=== PATIENT | female | born 1990 | race Caucasian/White ===

== ENCOUNTER 2016-06-03 13:12 | Outpatient (CLI) | payer BC ==
[~2016-06-03] VITALS: Ht 162.6 cm; Wt 63.4 kg
[~2016-06-03 13:12] MED LIST: FOLI0.4T2 PO; NAPR220C2 PO; ONDA4TAB14 PO; PREN1TAB31 PO
[2016-06-03 13:36] VITALS: BP 101/57; PULSE 101; RESP 18; Ht 162.6 cm; Wt 63.4 kg
--- NOTE | 2016-06-03 15:02 | RADRPT ---
PROCEDURE: US evaluation of placenta. CLINICAL INDICATION: Positive test. Vaginal bleeding. TECHNIQUE: Multiple sonographic images of the gravid uterus were obtained utilizing terrazas-scale iza ging. Sagittal and transverse images were obtained. The images were reviewed on a PACS workstation . The placenta was evaluated. COMPARISON: Cervical length ultrasound dated 03/22/2015. FINDINGS: There is a single live intrauterine . heart rate is 144 beats per minute. Position is cephalic and placenta is anterior grade 1. There is no placenta previa or abruption. IMPRESSION: 1. Placenta is anterior grade 1 with no abruption or previa. RPTAT: QQ .Tommie Gaona MD, MD Date Time Electronically viewed and signed by .Tommie Gaona MD, on 06/03/2016 15:02 .R/
[2016-06-03 15:42] LABS: ADD UMIC NO; URINE BILIRUBIN (Dip) NEGATIVE (NEGATIVE); URINE BLOOD (Dip) NEGATIVE (NEGATIVE); URINE COLOR LT. YELLOW (YELLOW); URINE GLUCOSE (Dip) NEGATIVE (NEGATIVE); URINE KETONES (Dip) NEGATIVE (NEGATIVE); URINE LEUKOCYTE ESTERASE (Dip) NEGATIVE (NEGATIVE); URINE NITRITE (Dip) NEGATIVE (NEGATIVE); URINE TOTAL PROTEIN (Dip) NEGATIVE (NEGATIVE); URINE UROBILINOGEN (Dip) 0.2 E.U./dL (0.1-1.0)
--- NOTE | 2016-06-03 15:53 | TRIAGE ---
OB Triage Datetime Report Generated by CPN: 06/03/2016 15:53 Datetime: 06/03/2016 15:00 Stage of : OB Triage Maternal Assessment Level of Consciousness: Fully Conscious Labor Evaluation Frequency: IRRITIBILITY NOTED Monitor Mode: External Duration (sec)2399: 20-30 Quality: Mild Resting Tone [place]: Relaxed Monitor Mode: External US (Annotations: ORDERS FOR LIMITED MONITORING) Pain Assessment Pain Scale: 0 Pain Goal: 3 Vaginal Exam Membrane Status: Intact Vaginal Bleeding: None Datetime: 06/03/2016 14:00 Stage of : OB Triage Maternal Assessment Level of Consciousness: Fully Conscious Labor Evaluation Frequency: NONE Monitor Mode: External Resting Tone [place]: Relaxed Heart Rate FHR Baseline Rate: 150 Monitor Mode: External US Variability: Moderate 6-25 bpm Accelerations: AGA Decelerations: AGA Pain Assessment Pain Scale: 0 Pain Goal: 3 Vaginal Exam Membrane Status: Intact Vaginal Bleeding: None Datetime: 06/03/2016 13:29 Assessment Type: Triage Maternal Assessment Level of Consciousness: Fully Conscious DTR's/Clonus: DTRs 2+; No Clonus Headache: Denies Blurred Vision: No Respiratory Effort: Unlabored; Regular Rhythm; Equal Expansion Breath Sounds, Left: Clear and Equal Breath Sounds, Right: Clear and Equal Nausea/Vomiting: Denies RUQ Epigastric Pain: Denies Lower Extremities Edema: None Degree: None Upper Extremities Edema: None Degree: None Facial Edema: None Fall Risk Assessment History of Falling: (0) No Secondary Diagnosis: (0) No Ambulatory Aid: (0) Bedrest/Nurse Assist IV Therapy: (0) No Gait: (0) Normal/Bedrest/Immobile Mental Status: (0) Oriented to Own Ability Fall Score: 0 Fall Risk Score Definition: No Risk: No action required Datetime: 06/03/2016 13:28 EGA: 23.2 Datetime: 06/03/2016 13:27 Time of Arrival: 06/03/2016 13:07 Arrived By: Ambulatory Arrived From: Home Chief Complaint: PT HERE C/O SPOTTING X 1 OCCURENCE AND ABD. PAIN Movement: Present Contractions: Denies/Absent Rupture of Membranes: Denies Vaginal Bleeding: None Vaginal Discharge: Denies Recent Sexual Intercouse: Denies Abdominal Trauma: Not Applicable Patient Complaints: None Provider Notified: JENNIFER Initial Plan: EFM, UA, U/S PLACENTA
--- NOTE | 2016-06-03 16:14 | CONS ---
Date/Time of Note Date/Time of Note DATE: 06/03/16 TIME: 16:07 Consultation Date/Type/Reason Admit Date/Time June 03, 2016 OB triage consult This patient is a 25 years old 2 para 1 living 1 with EDC of 09/28/2016 which makes her 23 weeks and 2 days She came about 3 hours ago to OB triage area complaining of abdominal pain and vaginal spotting and slight bleeding. On examination she is a well-developed well-nourished lady midterm her vital signs are all normal . blood pressure 99/57 pulse 801 temperature 98.7 oxygen saturation 95 her weight 63.4 kg. On examination her abdomen it is soft I do not feel any contractions heart tone and activity is normal. However to complete our evaluation I ordered a urinalysis and the result of which was negative no protein no glucose no blood nitrate was negative leukocyte esterase was negative On ultrasound which was performed today the report was that there is a single live intrauterine heart rate 144 bpm position cephalic with placenta anterior and grade 1 with no evidence of placenta previa with all these positive findings patient was discharged home to be followed in her pre- clinic in case of any further bleeding contractions or pain she can return to the triage area again Laboratory Tests Test 06/03/16 13:15 Urine Bilirubin NEGATIVE Urine Clarity CLEAR Urine Color LT. YELLOW Urine Glucose NEGATIVE% Urine Hemoglobin NEGATIVE Urine Ketones NEGATIVE Urine Leukocyte Esterase NEGATIVE Urine Nitrite NEGATIVE Urine Specific [place] 1.015 Urine Total Protein NEGATIVE Urine Urobilinogen 0.2 E.U./dL Urine pH 7.0 Initial Consult Date 24 HR Interval Summary Constitutional: No chills, No diaphoresis, No disoriented, No febrile, No improved, No no complaints, No other, No poor po, No requiring IVF, No requiring O2 Detailed Summary Eyes: No discharge, No no complaints, No other, No pain, No redness, No visual change ENT: No bleeding, No congestion, No discharge, No dysphagia, No no complaints, No other, No pain, No sore throat Respiratory: No cough, No no complaints, No other, No pain, No pleuritic pain, No shortness of breath, No sputum, No wheezing Cardiovascular: No chest pain, No edema, No lightheadedness, No no complaints, No orthopenea, No other, No palpitations, No paroxysmal nocturnal dyspnea Gastrointestinal: blood (As I mentioned there was a slight pink discharge but no real vaginal bleeding), No constipation, No decreased appetite, No diarrhea, No flatus, No nausea, No no complaints, No other, No pain, No passing stool, No vomiting Genitourinary: No bleeding, No discharge, No dysuria, No flank pain, No hematuria, No no complaints, No other Musculoskeletal: No back pain, No bone/joint pain, No neck pain, No no complaints, No other, No restricted range of motion, No swelling Skin: No bruising, No erythema, No laceration, No no complaints, No other, No pruritis, No rash, No skin lesions Neurologic: No confusion, No dizziness, No focal-weakness, No headache, No no complaints, No other, No seizure, No syncope Endocrine: No dry skin, No no complaints, No other, No polydypsia, No polyuria , No temp intolerance Exam/Review of Systems Vital Signs Vitals Vital Signs Date Time Temp Pulse Resp B/P Pulse Ox O2 Delivery O2 Flow Rate FiO2 06/03/16 13:36 98.7 101 18 101/57 95 Room Air Results Results 24 hrs Laboratory Tests Test 06/03/16 13:15 Urine Bilirubin NEGATIVE Urine Clarity CLEAR Urine Color LT. YELLOW Urine Glucose NEGATIVE Urine Hemoglobin NEGATIVE Urine Ketones NEGATIVE Urine Leukocyte Esterase NEGATIVE Urine Nitrite NEGATIVE Urine Specific [place] 1.015 Urine Total Protein NEGATIVE Urine Urobilinogen 0.2 E.U./dL Urine pH 7.0 LINDA DAMON MD Jun 03, 2016 16:14
== END 2016-06-03 16:10 | disposition home or self-care (01) ==
LOC: OBT 13:12 → L-D 13:16 → OBT 16:10
PROVIDERS: ATTEND Obstetrics & Gynecology
DX: O60.02 Preterm labor without delivery, second trimester (principal); Z3A.23 23 weeks gestation of pregnancy
CPT/HCPCS: 76815; 81003; Z7500; G0463

== ENCOUNTER 2016-08-11 13:24 | Outpatient (CLI) | payer BC ==
[~2016-08-11] VITALS: Ht 160 cm; Wt 65.0 kg
[~2016-08-11 13:24] MED LIST changes: -FOLI0.4T2 PO; -NAPR220C2 PO; -ONDA4TAB14 PO
[2016-08-11] MEDS ORDERED: PREN-93 PO (14:14)
[2016-08-11 14:15] VITALS: Ht 160 cm; Wt 65.0 kg
[2016-08-11 14:16] VITALS: BP 95/75; PULSE 19; RESP 19
--- NOTE | 2016-08-11 15:08 | TRIAGE ---
OB Triage Datetime Report Generated by CPN: 08/11/2016 15:08 Datetime: 08/11/2016 14:56 Stage of : OB Triage Maternal Assessment Level of Consciousness: Fully Conscious DTR's/Clonus: DTRs 1+ Headache: Denies Breath Sounds, Left: Clear and Equal Breath Sounds, Right: Clear and Equal RUQ Epigastric Pain: Denies Labor Evaluation Frequency: NONE Monitor Mode: External Resting Tone [place]: Relaxed Heart Rate FHR Baseline Rate: 140 Monitor Mode: External US Variability: Moderate 6-25 bpm Accelerations: 15X15 Decelerations: None Category: Category I Pain Assessment Pain Scale: 4 Pain Presence: Constant Pain Type: Ache Pain Location: Head Pain Goal: 3 Vaginal Exam Membrane Status: Intact Datetime: 08/11/2016 14:10 Maternal Assessment Level of Consciousness: Fully Conscious DTR's/Clonus: DTRs 1+ Headache: Denies Blurred Vision: No Respiratory Effort: Unlabored Breath Sounds, Left: Clear and Equal Breath Sounds, Right: Clear and Equal RUQ Epigastric Pain: Denies Facial Edema: None Labor Evaluation Frequency: NONE Monitor Mode: External Resting Tone [place]: Relaxed Heart Rate FHR Baseline Rate: 140 Monitor Mode: External US Variability: Moderate 6-25 bpm Accelerations: 15X15 Decelerations: None Category: Category I Pain Assessment Pain Scale: 4 Pain Presence: Constant Pain Type: Ache Pain Location: Head Pain Goal: 3 Vaginal Exam Membrane Status: Intact Datetime: 08/11/2016 14:01 Assessment Type: Triage Maternal Assessment Level of Consciousness: Fully Conscious DTR's/Clonus: DTRs 2+; No Clonus Headache: Denies Blurred Vision: No Respiratory Effort: Unlabored; Regular Rhythm; Equal Expansion Breath Sounds, Left: Clear and Equal Breath Sounds, Right: Clear and Equal Nausea/Vomiting: Denies RUQ Epigastric Pain: Denies Lower Extremities Edema: None Degree: None Upper Extremities Edema: None Degree: None Facial Edema: None Fall Risk Assessment History of Falling: (0) No Secondary Diagnosis: (0) No Ambulatory Aid: (0) Bedrest/Nurse Assist IV Therapy: (0) No Gait: (0) Normal/Bedrest/Immobile Mental Status: (0) Oriented to Own Ability Fall Score: 0 Fall Risk Score Definition: No Risk: No action required Datetime: 06/03/2016 16:00 Stage of : OB Triage Maternal Assessment Level of Consciousness: Fully Conscious Labor Evaluation Frequency: NONE Monitor Mode: External Resting Tone [place]: Relaxed Monitor Mode: External US (Annotations: ORDERS FOR LIMITED MONITORING) Pain Assessment Pain Scale: 0 Pain Goal: 3 Vaginal Exam Membrane Status: Intact Vaginal Bleeding: None Datetime: 06/03/2016 13:29 Fall Score: 0 Fall Risk Score Definition: No Risk: No action required Datetime: 06/03/2016 13:28 Time of Arrival: 08/11/2016 13:28 EGA: 33.1 Arrived By: Ambulatory Arrived From: Home Chief Complaint: PT CAME IN C/O HIHG BLOOD PRESSURE 140/119 AND THEN 138/117. PT STATES THAT SHE S UFFERING OF MIGRAINE HEADACHES FOR YEARS Movement: Present Contractions: Denies/Absent Rupture of Membranes: Denies Vaginal Discharge: Denies Recent Sexual Intercouse: Denies Abdominal Trauma: Not Applicable Additional Patient Complaints: NONE Time Provider Notified: 08/11/2016 15:00 Provider Notified: JUANCARLOS Initial Plan: WILLIAMST AND BÁRBARA
--- NOTE | 2016-08-11 15:52 | QN ---
Documentation Comment iup 33 wks. co of high BP at home no KAPLAN or other PIHsymptome vss 90-110/60-70 exam wnl ua neg a/p pih ruled out fu with NOLBERTO Wright i, MD August 11, 2016 15:52
== END 2016-08-11 15:00 | disposition home or self-care (01) ==
LOC: OBT 13:24 → L-D 13:28 → OBT 15:00
PROVIDERS: ATTEND Obstetrics & Gynecology
DX: O26.893 Other specified pregnancy related conditions, third trimester (principal); R03.0 Elevated blood-pressure reading, without diagnosis of hypertension; Z3A.33 33 weeks gestation of pregnancy
CPT/HCPCS: G0463

== ENCOUNTER 2016-08-25 14:40 | Outpatient (CLI) | payer BC ==
[~2016-08-25] VITALS: Ht 160 cm; Wt 64.5 kg
[~2016-08-25 14:40] MED LIST changes: +PREN-93 PO
--- NOTE | 2016-08-25 14:42 | TRIAGE ---
OB Triage Datetime Report Generated by CPN: 08/25/2016 14:42 Datetime: 08/11/2016 14:01 Fall Risk Assessment Fall Score: 0 Fall Risk Score Definition: No Risk: No action required Datetime: 08/11/2016 13:30 Time of Arrival: 08/11/2016 13:30 EGA: 33.1 Arrived By: Ambulatory Arrived From: Home Chief Complaint: PT CAME IN C/O HIGH BLOOD PRESSURE AT HOME 140/119 WITH HER MIGRAINE HEADACHE Movement: Present Rupture of Membranes: Denies Vaginal Bleeding: None Vaginal Discharge: Denies Recent Sexual Intercouse: Denies Abdominal Trauma: Not Applicable Patient Complaints: Other Additional Patient Complaints: NONE Time Provider Notified: 08/11/2016 14:00 Provider Notified: JENNIFER Initial Plan: NST AND MONITOR B/P Datetime: 06/03/2016 13:29 Fall Risk Assessment Fall Score: 0 Fall Risk Score Definition: No Risk: No action required Datetime: 06/03/2016 13:28 EGA: 33.1
[2016-08-25 15:17] VITALS: BP 111/73; PULSE 115; RESP 18; Ht 160 cm; Wt 64.5 kg
--- NOTE | 2016-08-25 16:22 | TRIAGE ---
OB Triage Datetime Report Generated by CPN: 08/25/2016 16:21 Datetime: 08/25/2016 16:15 Pain Scale: 4 Pain Presence: Intermittent Pain Type: Contraction Pain Location: Back; Right Hip; Left Hip Pain Relief Measures: Comfort Measures Dilatation (cms): 1.0 Effacement (%): 40 Station: -3 Exam By: FAREEDA Membrane Status: Intact Datetime: 08/25/2016 16:11 Frequency: OCCASSIONAL Monitor Mode: External Duration (sec)2399: 50-120 Pattern: Normal: <= 5 Contractions in 10 Minutes Resting Tone [place]: Relaxed FHR Baseline Rate: 135 Monitor Mode: External US Variability: Moderate 6-25 bpm Accelerations: 15X15 Decelerations: None Category: Category I Datetime: 08/25/2016 14:44 Stage of : OB Triage Pain Scale: 4 Pain Presence: Intermittent Pain Type: Contraction Pain Location: Abdomen; Back Pain Relief Measures: Comfort Measures Datetime: 08/25/2016 14:34 Time of Arrival: 08/25/2016 14:34 EGA: 35.1 Arrived By: Wheelchair Arrived From: Home Chief Complaint: CONTRACTIONS SINCE MIDNIGHT LAST NIGHT Movement: Present Contractions: Irregular Rupture of Membranes: Denies Vaginal Bleeding: None Vaginal Discharge: Denies Recent Sexual Intercouse: Denies Abdominal Trauma: Not Applicable Time Provider Notified: 08/25/2016 16:15 Provider Notified: DR. RODRIGUEZ Initial Plan: TOCO/ US, PO HYDRATION
--- NOTE | 2016-08-25 16:51 | TRIAGE ---
OB Triage Datetime Report Generated by CPN: 08/25/2016 16:51 Datetime: 08/25/2016 14:34 Time Contractions Began: 08/26/2016 00:01 Initial Plan: TOCO/ US, PO HYDRATION, SVE-1/40/-3, INTACT
--- NOTE | 2016-08-25 17:05 | PN ---
Date/Time of Note Date/Time of Note DATE: 08/25/16 TIME: 17:01 OB Subjective Subjective Subjective Patient is a 25-year-old 2 para 1 at 35+1 weeks of gestation She presents with contractions, no leaking fluid, no vaginal bleeding, positive movement Previously delivered full-term Patient has her care with Dr. Beckman/Santhosh OB Objective HEENT: WNL Heart: Rhythm Normal Lungs: Clear, Equal Abdomen: WNL Extremities: Normal Reflexes: Normal Cervical Dilatation: 1cm Effacement: 50% Station: -3 Membranes: Intact Heart Rate: 140's Accelerations: Accelerations Present Decelerations: No Decelerations Contractions on Admission: >10 Minutes Apart OB Assessment/Plan Other Assessment: Patient is a 35+ weeks of gestation with contractions Other plan: IV hydration given No contractions noted on [place] Patient was counseled to increase p.o. hydration She will be discharged home Patient instructed to follow-up with [facility] [employer] [facility]IC THERAPIST in 2 days LAURA ELIAS MD August 25, 2016 17:05
== END 2016-08-25 16:53 | disposition home or self-care (01) ==
LOC: L-D 14:40 → OBT 14:40
PROVIDERS: ATTEND Obstetrics & Gynecology
DX: O62.4 Hypertonic, incoordinate, and prolonged uterine contractions (principal); Z3A.35 35 weeks gestation of pregnancy
CPT/HCPCS: G0463

== ENCOUNTER 2016-08-28 21:04 | Outpatient (CLI) | payer BC ==
[~2016-08-28] VITALS: Ht 160 cm; Wt 64.7 kg
[2016-08-28 21:24] VITALS: Ht 160 cm; Wt 64.7 kg
[2016-08-28 21:25] VITALS: BP 112/74; PULSE 112; RESP 18
[2016-08-28 21:43] LABS: URINE BLOOD (Dip) POC Negative (NEGATIVE)
--- NOTE | 2016-08-29 00:51 | QN ---
Documentation Comment Laborist Dr Staton/Dr Trevizo's pt 25 y.o. with an IUP at 35w 5d c/o UC's +FM. No leaking or bleeding. PMHx: none. PSHx: none. NKDA. BP 112/74 T=98.1 NST: baseline 120-130 bpm with accels to 170 bpm. No decles. No UC's. U/A negative. Pt reports feeling much better after laying quietly and resting and states the contractions have stopped. A: IUP at 35w 5d. False labor. P: D/C home. Reviewed labor precautions. If feels UC's again is to drink 2 large glasses of water, take a shower if home , and stop doing whatever she is doing, and then if the UC's continue after that then she can return to [facility]. JANEY HO MD August 29, 2016 00:51
--- NOTE | 2016-08-29 02:37 | TRIAGE ---
OB Triage Datetime Report Generated by CPN: 08/29/2016 02:37 Datetime: 08/29/2016 00:45 Stage of : OB Triage Datetime: 08/29/2016 00:00 Stage of : OB Triage Maternal Assessment Level of Consciousness: Fully Conscious Labor Evaluation Frequency: NONE Monitor Mode: External Heart Rate FHR Baseline Rate: 120 Monitor Mode: External US Variability: Moderate 6-25 bpm Decelerations: None Category: Category I Datetime: 08/28/2016 23:00 Stage of : OB Triage Maternal Assessment Level of Consciousness: Fully Conscious Labor Evaluation Frequency: NONE Monitor Mode: External Heart Rate FHR Baseline Rate: 145 Monitor Mode: External US Variability: Moderate 6-25 bpm Decelerations: None Category: Category I Datetime: 08/28/2016 22:00 Stage of : OB Triage Maternal Assessment Level of Consciousness: Fully Conscious Labor Evaluation Frequency: NONE Monitor Mode: External Heart Rate FHR Baseline Rate: 165 Monitor Mode: External US Variability: Moderate 6-25 bpm Decelerations: None Category: Category II Datetime: 08/28/2016 21:31 Assessment Type: Triage Maternal Assessment Level of Consciousness: Fully Conscious DTR's/Clonus: DTRs 2+; No Clonus Headache: Denies Blurred Vision: No Respiratory Effort: Unlabored; Regular Rhythm; Equal Expansion Breath Sounds, Left: Clear and Equal Breath Sounds, Right: Clear and Equal Nausea/Vomiting: Denies RUQ Epigastric Pain: Denies Facial Edema: None Fall Risk Assessment History of Falling: (0) No Secondary Diagnosis: (0) No Ambulatory Aid: (0) Bedrest/Nurse Assist IV Therapy: (0) No Gait: (0) Normal/Bedrest/Immobile Mental Status: (0) Oriented to Own Ability Fall Score: 0 Fall Risk Score Definition: No Risk: No action required Datetime: 08/28/2016 21:30 Stage of : OB Triage Maternal Assessment Level of Consciousness: Fully Conscious DTR's/Clonus: DTRs 2+; No Clonus Headache: Denies Blurred Vision: No Respiratory Effort: Unlabored; Regular Rhythm; Equal Expansion Breath Sounds, Left: Clear and Equal Breath Sounds, Right: Clear and Equal Nausea/Vomiting: Denies RUQ Epigastric Pain: Denies Lower Extremities Edema: None Upper Extremities Edema: None Facial Edema: None Temperature Route: Oral Fall Risk Assessment History of Falling: (0) No Secondary Diagnosis: (0) No Ambulatory Aid: (0) Bedrest/Nurse Assist IV Therapy: (0) No Gait: (0) Normal/Bedrest/Immobile Mental Status: (0) Oriented to Own Ability Fall Score: 0 Fall Risk Score Definition: No Risk: No action required Labor Evaluation Frequency: NONE Monitor Mode: External Heart Rate FHR Baseline Rate: 165 Monitor Mode: External US Variability: Moderate 6-25 bpm Decelerations: None Category: Category II Datetime: 08/25/2016 16:53 Labor Evaluation Frequency: OCCASIONAL Monitor Mode: External Duration (sec)2399: 50-90 Pattern: Normal: <= 5 Contractions in 10 Minutes Resting Tone [place]: Relaxed Contraction Comments: IRRITABILITY Heart Rate FHR Baseline Rate: 130 Monitor Mode: External US Variability: Moderate 6-25 bpm Accelerations: 15X15 Decelerations: None Category: Category I Pain Assessment Pain Scale: 3 Pain Presence: Intermittent Pain Type: Contraction Pain Location: Back Pain Relief Measures: Comfort Measures Datetime: 08/25/2016 16:47 Time of Arrival: 08/28/2016 21:00 EGA: 35.4 Arrived By: Ambulatory Arrived From: Home Chief Complaint: PT C/O ABDOMEN PAIN Movement: Present Contractions: Regular Time Contractions Began: 08/28/2016 09:00 Rupture of Membranes: Denies Vaginal Bleeding: None Vaginal Discharge: Denies Recent Sexual Intercouse: Denies Abdominal Trauma: Not Applicable Patient Complaints: Contractions Additional Patient Complaints: INITIAL PHYSICAL ASSESSMENT, TOCO AND EFM APPLIED Time Provider Notified: 08/29/2016 00:42 Provider Notified: DR GOLD Datetime: 08/25/2016 14:34 EGA: 35.1 Patient Complaints: Contractions Datetime: 08/11/2016 14:01 Fall Score: 0 Fall Risk Score Definition: No Risk: No action required Datetime: 08/11/2016 13:30 EGA: 33.1 Datetime: 06/03/2016 13:29 Fall Score: 0 Fall Risk Score Definition: No Risk: No action required Datetime: 06/03/2016 13:28 EGA: 33.1
== END 2016-08-29 00:45 | disposition home or self-care (01) ==
LOC: OBT 21:04 → L-D 21:04 → OBT 08-29 00:45
PROVIDERS: ATTEND Obstetrics & Gynecology
DX: O62.9 Abnormality of forces of labor, unspecified (principal); O47.03 False labor before 37 completed weeks of gestation, third trimester; Z3A.35 35 weeks gestation of pregnancy
CPT/HCPCS: 81003; Z7500; G0463

== ENCOUNTER 2016-09-12 11:42 | Outpatient (CLI) | payer BC ==
[~2016-09-12] VITALS: Ht 162.6 cm; Wt 65.2 kg
[2016-09-12 12:05] VITALS: BP 109/58; PULSE 99; Ht 162.6 cm; Wt 65.2 kg
[2016-09-12] MEDS ORDERED: LACTATED RINGER'S 1,000 ML IV SCH (12:30)
--- NOTE | 2016-09-12 14:13 | RADRPT ---
PROCEDURE: Biophysical profile CLINICAL INDICATION: distress. labor. TECHNIQUE: Color and terrazas-scale ultrasound images of an intrauterine gestation were obtained. COMPARISON: OB ultrasound June 03, 2016 FINDINGS: A single live intrauterine gestation is identified in cephalic position with an estimated hear t rate of 134 beats per minute. The placenta is located anteriorly and is a grade of II. The cervi x is obscured by head shadows. No evidence of abruption identified. OPAL is 11.7 cm. movement 2/2. tone 2/2. breathing movement 2/2. Qualitative AFV 2/2 Total biophysical profile 11/11 IMPRESSION: 11/11 biophysical profile. RPTAT: AA .Manuel Ross MD, Date Time Electronically viewed and signed by .Manuel Ross MD, MD on 09/12/2016 14:13 .P/
[2016-09-12 15:17] LABS: ADD UMIC YES; URINE BILIRUBIN (Dip) NEGATIVE (NEGATIVE); URINE BLOOD (Dip) NEGATIVE (NEGATIVE); URINE COLOR LT. YELLOW (YELLOW); URINE GLUCOSE (Dip) NEGATIVE (NEGATIVE); URINE KETONES (Dip) NEGATIVE (NEGATIVE); URINE LEUKOCYTE ESTERASE (Dip) 2+ (NEGATIVE); URINE NITRITE (Dip) NEGATIVE (NEGATIVE); URINE TOTAL PROTEIN (Dip) NEGATIVE (NEGATIVE); URINE UROBILINOGEN (Dip) 0.2 E.U./dL (0.1-1.0)
[2016-09-12 15:24] LABS: BACTERIA,URINE MODERATE
--- NOTE | 2016-09-12 16:16 | PN ---
Triage Information Date/Time Weeks of Gestation 37+ : 2 Para: 1 Diabetes: none Hypertention: none Additional information early labor no cervical change BPP 11/11 Nst reassring No urinary symptoms Objective Vital Signs Date Time Temp Pulse Resp B/P Pulse Ox O2 Delivery O2 Flow Rate FiO2 09/12/16 12:05 98.3 99 109/58 Results/Medications Results 24 hrs Laboratory Tests Test 09/12/16 14:50 Urine Color LT. YELLOW Urine Clarity CLEAR Urine pH 5.5 Urine Specific [place] <=1.005 L Urine Ketones NEGATIVE Urine Nitrite NEGATIVE Urine Bilirubin NEGATIVE Urine Urobilinogen 0.2 E.U./dL Urine Leukocyte Esterase 2+ H Urine Microscopic RBC 5-10 Urine Microscopic WBC 10-25 Urine Epithelial Cells FEW Urine Bacteria MODERATE Urine Hemoglobin NEGATIVE Urine Glucose NEGATIVE Urine Total Protein NEGATIVE Medications Current Medications Lactated Ringer's (Lr) 1,000 ml @ 125 mls/hr Q8H IV Last administered on t 12:35; Admin Dose 125 MLS/HR; Start 09/12/16 at 12:30 Assessment/Plan Discharge Home labor precautions discussed with patient BREA FRENCH M.D. Sep 12, 2016 16:16
== END 2016-09-12 16:20 | disposition home or self-care (01) ==
LOC: OBT 11:42 → L-D 11:44 → OBT 16:20
PROVIDERS: ATTEND Obstetrics & Gynecology
DX: O60.03 Preterm labor without delivery, third trimester (principal); Z3A.37 37 weeks gestation of pregnancy
CPT/HCPCS: 36415; 76818; 81001; 96360; 96361; J7120; Z7500; G0463

== ENCOUNTER 2016-09-21 15:13 | Inpatient (IN) | payer BC ==
[~2016-09-21] VITALS: Ht 162.6 cm; Wt 65.4 kg
[2016-09-21 16:12] VITALS: BP 115/71; PULSE 92; Ht 162.6 cm; Wt 65.4 kg
[2016-09-21] MEDS ORDERED: BUTORPHANOL 2 MG INJ IV PRN ×2 (18:30)
[2016-09-21] MEDS ORDERED: LACTATED RINGER'S 1,000 ML IV PRN (18:30)
[2016-09-21] MEDS ORDERED: MISOPROSTOL 200 MCG TAB PR PRN (18:30)
[2016-09-21] MEDS ORDERED: CARBOPROST 250 MCG INJ IM PRN (18:30)
[2016-09-21] MEDS ORDERED: LIDOCAINE 1% (MPF) 30 ML INJ INJ PRN (18:30)
[2016-09-21] MEDS ORDERED: METHYLERGONOVINE 0.2 MG INJ IM PRN (18:30)
--- NOTE | 2016-09-21 18:47 | HP ---
Date/Time of Note Date/Time of Note DATE: 09/21/16 TIME: 18:43 OB - History Hx of Present Free Text/Dictation Pt is a 25yo at 39+0 presenting with c/o contractions since this AM. Reports normal FM, denies LOF or VB. Pt reports her has been uncomplicated. Estimated Due Date: Sep 28, 2016 : 2 Para: 1 Care: Good Care Obstetrical Complications: None Medical Complications: None Past Family/Social History * Chart not available Blood Type: B+ (from chart corresponding to last ) [place]: unknown RPR/VDRL: Unknown GBS Status: Unknown HBsAG: Unknown OB Admission Exam Vital Signs Vital Signs Vital Signs Date Time Temp Pulse Resp B/P Pulse Ox O2 Delivery O2 Flow Rate FiO2 09/21/16 16:12 98.4 92 115/71 Physical Exam HEENT: WNL Heart: Rhythm Normal Lungs: Clear Abdomen: WNL Extremities: Normal Cervical Dilatation: 3cm Effacement: Other (80%) Station: -2 Membranes: Intact Heart Rate: 130's Accelerations: Accelerations Present Decelerations: No Decelerations Varibility: Moderate Contractions on Admission: 6-10 Minutes Apart OB Assessment/Plan Other Assessment: Early labor with cervical change on repeat SVE Reactive NST Plan: Expectant Management Other plan: Admit to L&D for expectant management in early labor Obtain labs monitoring per protocol Plan d/w pt and her . Questions answered to their satisfaction. RANDA CAGLE MD Sep 21, 2016 18:46
[2016-09-21] MEDS: LACTATED RINGER'S 1,000 ML IV SCH ×2 (19:04→20:17)
[2016-09-21 19:50] LABS: ADD SCAN DIFF NO
[2016-09-21 19:52] LABS: BASOPHILS % 0.2 % (0.0-2.0); EOSINOPHILS % 0.2 % (0.0-7.0); HEMATOCRIT 37.9 % (37.0-47.0); HEMOGLOBIN 11.9 g/dl (12.0-16.0); LYMPHOCYTES # 1.9 10^3/ul (0.8-2.9); LYMPHOCYTES % 20.5 % (15.0-51.0); MEAN CORPUSCULAR HEMOGLOBIN 24.7 pg (29.0-33.0); MEAN CORPUSCULAR HGB CONC 31.4 g/dl (32.0-37.0); MEAN CORPUSCULAR VOLUME 78.8 fl (82.0-101.0); MEAN PLATELET VOLUME 10.7 fl (7.4-10.4); MONOCYTE # 0.5 10^3/ul (0.3-0.9); MONOCYTES % 5.3 % (0.0-11.0); NEUTROPHIL # 6.8 10^3/ul (1.6-7.5); NEUTROPHILS % 72.9 % (39.0-77.0); PLATELET COUNT 174 10^3/UL (140-415); RED BLOOD COUNT 4.81 10^6/ul (4.20-5.40); RED CELL DISTRIBUTION WIDTH 14.3 % (11.5-14.5); WHITE BLOOD COUNT 9.3 10^3/ul (4.8-10.8)
[2016-09-21 20:09] LABS: INR 0.97; PROTIME 12.9 Sec (12.2-14.2)
[2016-09-21 20:10] LABS: PARTIAL THROMBOPLASTIN TIME 25.9 Sec (25.0-35.0)
[2016-09-21] MEDS ORDERED: LACTATED RINGER'S 1,000 ML IV ONE (20:27)
[2016-09-21] MEDS ORDERED: NALOXONE (0.4 MG/ML) INJ IV PRN (20:30)
[2016-09-21] MEDS ORDERED: DIPHENHYDRAMINE 50 MG INJ IV PRN (20:30)
[2016-09-21] MEDS ORDERED: ONDANSETRON 4 MG INJ IV PRN (20:30)
[2016-09-21] MEDS ORDERED: KETOROLAC 30 MG INJ IV PRN (20:30)
[2016-09-21] MEDS ORDERED: FENTAnyl 2MCG/ML-ROPIV 0.2% 100 ML BAG EPI SCH (20:30)
[2016-09-21] MEDS ORDERED: morphine 2 MG INJ IV PRN ×2 (20:30)
[2016-09-21] MEDS ORDERED: ONDANSETRON 4 MG INJ IV ONE (20:30)
[2016-09-21] MEDS ORDERED: CITRIC ACID/SODIUM CITRATE 15 ML CUP PO ONE (20:30)
[2016-09-21] MEDS ORDERED: PROCHLORPERAZINE 10 MG INJ IV PRN (20:30)
[2016-09-21] MEDS ORDERED: FENTAnyl 2MCG/ML-ROPIV 0.2% 100 ML ONE (20:38)
[2016-09-21 22:08] LABS: BARBITURATES Negative (NEGATIVE); BENZODIAZEPINES Negative (NEGATIVE); CANNABINOIDS Negative (NEGATIVE); COCAINE Negative (NEGATIVE); OPIATES Negative (NEGATIVE)
[2016-09-22] MEDS: LACTATED RINGER'S 1,000 ML IV SCH ×2 (02:14→08:12)
[2016-09-22] MEDS: OXYTOCIN 30 UNITS/LR 500 ML IV PRN ×2 (08:28→09:23)
[2016-09-22] MEDS ORDERED: IBUPROFEN 600 MG TAB PO PRN (09:30)
--- NOTE | 2016-09-22 09:55 | LDN ---
Date/Time of Note Date/Time of Note DATE: 09/22/16 TIME: 09:54 Delivery Summary term preg. nsd Placenta Delivered: Spontaneously Meconium: none Episiotomy: Yes Perineal laceration: 2 Anesthesia type: Epidural Estimated blood loss: 350 Sponge & Needle done & correct: Yes All needle counts correct: Yes Any foreign bodies felt in the: No Problems: ANTHONY RODRIGUEZ MD Sep 22, 2016 09:55
[2016-09-22] MEDS ORDERED: LACTATED RINGER'S 1,000 ML IV* SCH (10:17)
[2016-09-22 10:19] VITALS: BP 113/71; PULSE 110; RESP 20
[2016-09-22] MEDS ORDERED: SENNA/DOCUSATE NA (8.6MG/50MG) TAB PO PRN (10:30)
[2016-09-22] MEDS ORDERED: OXYTOCIN 30 UNITS/LR 500 ML IV PRN (10:30)
[2016-09-22] MEDS ORDERED: MISOPROSTOL 200 MCG TAB PR PRN (10:30)
[2016-09-22] MEDS ORDERED: METHYLERGONOVINE 0.2 MG INJ IM PRN (10:30)
[2016-09-22] MEDS ORDERED: LANOLIN 7 GM TUBE TOP PRN (10:30)
[2016-09-22] MEDS ORDERED: WITCH HAZEL/GLYCERIN PAD PR PRN (10:30)
[2016-09-22] MEDS ORDERED: CARBOPROST 250 MCG INJ IM PRN (10:30)
[2016-09-22] MEDS ORDERED: DIPHENHYDRAMINE 25 MG CAP PO PRN (10:30)
[2016-09-22] MEDS ORDERED: ZOLPIDEM 5 MG TAB PO PRN (10:30)
[2016-09-22] MEDS ORDERED: ACETAMINOPHEN 325 MG TAB PO PRN (10:30)
[2016-09-22] MEDS ORDERED: BENZOCAINE 20% 56 ML SPRAY TOP PRN (10:30)
[2016-09-22] MEDS ORDERED: MAGNESIUM HYDROXIDE 30ML CUP PO PRN (10:30)
[2016-09-22] MEDS: IBUPROFEN 800 MG TAB PO SCH ×3 (11:11→23:39)
[2016-09-22 15:23] VITALS: BP 99/54; PULSE 81; RESP 20
[2016-09-22] MEDS: OXYTOCIN 30 UNITS/LR 500 ML IV SCH (19:00)
[2016-09-22 19:40] VITALS: BP 105/58; PULSE 85; RESP 18
[2016-09-23 04:03] VITALS: BP 100/68; PULSE 81; RESP 20
[2016-09-23] MEDS: IBUPROFEN 800 MG TAB PO SCH ×4 (06:03→23:32)
[2016-09-23 08:15] LABS: ADD SCAN DIFF NO
[2016-09-23 08:19] LABS: BASOPHILS % 0.2 % (0.0-2.0); EOSINOPHILS # 0.1 10^3/ul (0.0-0.5); EOSINOPHILS % 0.6 % (0.0-7.0); HEMATOCRIT 34.1 % (37.0-47.0); HEMOGLOBIN 10.9 g/dl (12.0-16.0); LYMPHOCYTES # 1.9 10^3/ul (0.8-2.9); LYMPHOCYTES % 20.2 % (15.0-51.0); MEAN CORPUSCULAR HEMOGLOBIN 24.8 pg (29.0-33.0); MEAN CORPUSCULAR VOLUME 77.7 fl (82.0-101.0); MEAN PLATELET VOLUME 10.4 fl (7.4-10.4); MONOCYTE # 0.6 10^3/ul (0.3-0.9); MONOCYTES % 6.9 % (0.0-11.0); NEUTROPHIL # 6.6 10^3/ul (1.6-7.5); NEUTROPHILS % 71.6 % (39.0-77.0); PLATELET COUNT 168 10^3/UL (140-415); RED BLOOD COUNT 4.39 10^6/ul (4.20-5.40); RED CELL DISTRIBUTION WIDTH 14.5 % (11.5-14.5); WHITE BLOOD COUNT 9.3 10^3/ul (4.8-10.8)
[2016-09-23 08:20] VITALS: BP 107/75; RESP 17
[2016-09-23] MEDS: ACETAMINOPHEN/CODEINE #3 TAB PO PRN ×2 (09:19→19:00)
--- NOTE | 2016-09-23 12:40 | DS ---
Date/Time of Note Date/Time of Note DATE: 09/23/16 TIME: 12:39 Discharge Summary Admission/Discharge Info Admit Date/Time Sep 21, 2016 at 18:20 Discharge Date/Time Final Diagnosis term preg Patient Condition: Stable Hospital Course unremarkable Home Meds Reported Medications Vit No.124/Iron/FA ( Vitamin Tablet) 1 Each Tablet, 1 EACH PO, TAB 08/11/16 Vits #90-Iron Fum-FA ( Formula) 1 Each Tablet, 1 TAB PO DAILY, TAB 10/28/14 Primary Care Provider Umair Rivas MD Pending Labs Laboratory Tests Test 09/23/16 07:40 White Blood Count 9.310^3/ul (4.8-10.8) Red Blood Count 4.3910^6/ul (4.20-5.40) Hemoglobin 10.9g/dl (12.0-16.0) Hematocrit 34.1% (37.0-47.0) Mean Corpuscular Volume 77.7fl (82.0-101.0) Mean Corpuscular Hemoglobin 24.8pg (29.0-33.0) Mean Corpuscular Hemoglobin Concent 32.0g/dl (32.0-37.0) Red Cell Distribution Width 14.5% (11.5-14.5) Platelet Count 46283^3/UL (140-415) Mean Platelet Volume 10.4fl (7.4-10.4) Neutrophils % 71.6% (39.0-77.0) Lymphocytes % 20.2% (15.0-51.0) Monocytes % 6.9% (0.0-11.0) Eosinophils % 0.6% (0.0-7.0) Basophils % 0.2% (0.0-2.0) Nucleated Red Blood Cells % 0.0/100WBC (0.0-0.0) Neutrophils # 6.610^3/ul (1.6-7.5) Lymphocytes # 1.910^3/ul (0.8-2.9) Monocytes # 0.610^3/ul (0.3-0.9) Eosinophils # 0.110^3/ul (0.0-0.5) Basophils # 0.010^3/ul (0.0-0.1) Nucleated Red Blood Cells # 0.010^3/ul (0.0-0.0) ANTHONY RODRIGUEZ MD Sep 23, 2016 12:40
[2016-09-23 16:00] VITALS: BP 99/69; PULSE 80; RESP 17
[2016-09-23 19:40] VITALS: BP 103/57; PULSE 77; RESP 18
[2016-09-24 04:05] VITALS: BP 104/57; PULSE 88; RESP 18
[2016-09-24] MEDS: IBUPROFEN 800 MG TAB PO SCH ×2 (05:34→12:26)
[2016-09-24] MEDS ORDERED: VARICELLA VACCINE LIVE/PF 1,350 UNIT/0.5 ML ML SC* ONE (09:00)
[2016-09-24] MEDS ORDERED: MEASLES,MUMPS,RUBELLA VACCINE INJ SC* ONE (09:00)
[2016-09-24] MEDS ORDERED: DIPHTH/TET/ACEL PERTUSS (ADULT) 0.5 ML VIAL IM* ONE (09:00)
[2016-09-24 09:01] VITALS: BP 110/72; PULSE 89; RESP 18
[2016-09-24] MEDS: ACETAMINOPHEN/CODEINE #3 TAB PO PRN (09:01)
--- NOTE | 2016-09-24 11:38 | PD.PPDC ---
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
--- NOTE | 2016-09-24 13:40 | PN ---
Date/Time of Note Date/Time of Note DATE: 09/24/16 TIME: 13:33 OB Subjective Subjective Subjective Breast-feeding. No complaint. Vaginal bleeding decreased. complains of itching of the perineal suture. urinating. Denies any complaint. OB Objective Objective Objective GA: A&O, NAD Abdomen: soft, non tender. Fundus: non tender. Breasts: non tender, no erythema. no fissure or evidence of mastitis Extremities: No calf tenderness, No edema. OB Assessment/Plan Other Assessment: s/p PPD #2 mild anemia, post . asymptomatic Can be discharged home follow up at 6 weeks post with her Ob clinc. JAKOB VALENCIA MD Sep 24, 2016 13:39
== END 2016-09-24 16:00 | disposition home or self-care (01) | DRG 775 ==
LOC: OBT 15:13 → L-D 15:14 → OBT 18:20 → L-D 18:20 → PP1 09-22 10:16
PROVIDERS: ADMIT Obstetrics & Gynecology; ATTEND Obstetrics & Gynecology
PROC: 10E0XZZ Delivery of Products of Conception, External Approach (ICD-10-PCS; principal; 2016-09-21)
PROC: 3E00X4Z Introduction of Serum, Toxoid and Vaccine into Skin and Mucous Membranes, External Approach (ICD-10-PCS; 2016-09-24)
DX: O80 Encounter for full-term uncomplicated delivery (principal); Z23 Encounter for immunization; Z3A.39 39 weeks gestation of pregnancy; Z37.0 Single live birth
CPT/HCPCS: 62319; 80307; 85025; 85610; 85730; 86592; 86900; 86901; 87340; 90715; 90716; G0463; J2405; J2590; J3010; J7120

== ENCOUNTER 2017-03-09 11:07 | Emergency (ER) | payer BC ==
[~2017-03-09] VITALS: Wt 58.9 kg
[2017-03-09 13:11] LABS: URINE BLOOD (Dip) POC Negative (NEGATIVE)
[2017-03-09] MEDS ORDERED: ONDA4TAB14 PO (13:15)
--- NOTE | 2017-03-09 13:41 | ERD ---
ER Documentation Chief Complaint Chief Complaint NAUSEA, VOMITING X1 WEEK, NO AP HPI 26-year-old female complaining of nausea 1 week. Patient states she has not had her period and she is unsure if she is . Patient denies any abdominal pain. Denies diarrhea. Denies changes in urination. Denies fever. A0. Presents to the ER for a test today. Denies medical problems. NKDA. Surgical history: Denies. Social history: Denies ROS All systems reviewed and are negative except as per history of present illness. Medications Home Meds Active Scripts Ondansetron (Ondansetron Odt) 4 Mg Tab.rapdis, 4 MG PO Q6H Y for NAUSEA AND/OR VOMITING, #10 TAB Prov:YURIY NICOLAS PA-C 03/09/17 Reported Medications Vit No.124/Iron/FA ( Vitamin Tablet) 1 Each Tablet, 1 EACH PO, TAB 08/11/16 Vits #90-Iron Fum-FA ( Formula) 1 Each Tablet, 1 TAB PO DAILY, TAB 10/28/14 Allergies Allergies: Coded Allergies: No Known Allergy (Unverified , 03/09/17) PMhx/Soc History of Surgery: No Anesthesia Reaction: No Hx Neurological Disorder: No Hx Respiratory Disorders: No Hx Cardiac Disorders: No Hx Psychiatric Problems: No Hx Miscellaneous Medical Probl: No Hx Alcohol Use: No Hx Substance Use: No Hx Tobacco Use: No Smoking Status: Never smoker Physical Exam Vitals Vital Signs Date Time Temp Pulse Resp B/P Pulse Ox O2 Delivery O2 Flow Rate FiO2 03/09/17 11:13 97.8 90 17 119/77 97 Physical Exam GENERAL: The patient is well-appearing, well-nourished, in no acute distress HEENT: Atraumatic. Conjunctivae are pink. Pupils equal, round, and reactive to light. There is no scleral icterus. Tympanic membranes clear bilaterally. Oropharynx clear. No nystagmus or photophobia. NECK: C-spine is soft and supple. There is no meningismus. There is no cervical lymphadenopathy. CHEST: Clear to auscultation bilaterally. There are no rales, wheezes or rhonchi. HEART: Regular rate and rhythm. No murmurs, clicks, rubs or gallops. No S3 or S4. ABDOMEN:Soft, nontender and nondistended. Good bowel sounds. No rebound or guarding. No gross peritonitis. No gross organomegaly or masses. BACK: No midline or flank tenderness. Results 24 hrs Laboratory Tests Test 03/09/17 13:11 Bedside Urine pH (LAB) 6.5 Bedside Urine Protein (LAB) Negative Bedside Urine Glucose (UA) Negative Bedside Urine Ketones (LAB) Negative Bedside Urine Blood Negative Bedside Urine Nitrite (LAB) Negative Bedside Urine Leukocyte Esterase (L Negative Procedures/MDM ER Course: Urine negative MDM; 26-year-old female complaining of nausea. Patient was discharged with antiemetics. I have low suspicion for as test is negative. I have low suspicion for acute abdomen as patient's abdominal exam is non- concerning. Patient's vital signs are stable patient's exam is nontoxic- appearing. Patient will be discharged with antinausea medications and told to follow-up with primary care within 1-2 days for close evaluation. Patient is told if symptoms change or worsen to return the ER. All questions answered at discharge Departure Diagnosis: Primary Impression: Nausea Condition: Stable Patient Instructions: Nausea Additional Instructions: FOLLOW UP WITH YOUR PRIMARY CARE PHYSICIAN TOMORROW.Return to this facility if you are not improving as expected. YURIY NICOLAS PA-C Mar 09, 2017 13:41
== END 2017-03-09 13:46 | disposition home or self-care (01) ==
LOC: FTE 11:07
DX: R11.0 Nausea (principal)
CPT/HCPCS: 81003; 99283

== ENCOUNTER 2018-08-29 21:29 | Emergency (ER) | payer BC ==
[~2018-08-29] VITALS: Ht 167.6 cm; Wt 62.9 kg
[~2018-08-29 21:29] MED LIST changes: +ONDA4TAB14 PO
[2018-08-29 21:31] VITALS: BP 122/69; PULSE 87; RESP 16; Ht 167.6 cm; Wt 62.9 kg
[2018-08-29] MEDS ORDERED: IBUPROFEN 600 MG TAB PO ONE (22:30)
[2018-08-29] MEDS ORDERED: BACITRACIN 0.9 GM OINT TOP ONE (22:30)
[2018-08-29] MEDS ORDERED: OXYCODONE/ACETAMINOPHEN (5/325) TAB PO ONE (22:30)
--- NOTE | 2018-08-29 22:33 | ERD ---
ER Documentation Chief Complaint Chief Complaint Pt reports she shut her R pinky in the car door HPI 27-year-old female presents to the ER with complaint of fifth right digit finger pain. States that she slammed her finger in a car door earlier this morning. Denies any treatments. States that the pain is currently 8 out of 10. Denies any numbness or impaired range of motion. Denies any allergies to medications. ROS All systems reviewed and are negative except as per history of present illness. Medications Home Meds Active Scripts Ibuprofen* (Motrin*) 600 Mg Tab, 600 MG PO Q6, #30 TAB Prov:ALIS CORTES 08/29/18 Bacitracin* (Bacitracin Oint (UD)*) 1 Applic Oint, 1 APPLIC TOP BID, #1 BOTTLE APPLY TO Prov:ALIS CORTES 08/29/18 Ondansetron (Ondansetron Odt) 4 Mg Tab.rapdis, 4 MG PO Q6H PRN for NAUSEA AND/OR VOMITING, #10 TAB Prov:YURIY NICOLAS PA-C 03/09/17 Reported Medications Vit No.124/Iron/FA ( Vitamin Tablet) 1 Each Tablet, 1 EACH PO, TAB 08/11/16 Vits #90-Iron Fum-FA ( Formula) 1 Each Tablet, 1 TAB PO DAILY, TAB 10/28/14 Allergies Allergies: Coded Allergies: No Known Allergy (Unverified , 03/09/17) PMhx/Soc History of Surgery: No Anesthesia Reaction: No Hx Neurological Disorder: No Hx Respiratory Disorders: No Hx Cardiac Disorders: No Hx Psychiatric Problems: No Hx Miscellaneous Medical Probl: No Hx Alcohol Use: No Hx Substance Use: No Hx Tobacco Use: No FmHx Family History: No diabetes, No coronary disease, No other Physical Exam Vitals Vital Signs Date Temp Pulse Resp B/P (MAP) Pulse Ox O2 O2 Flow FiO2 Time Delivery Rate 08/29/18 97.8 87 16 122/69 100 21:31 (86) Physical Exam Const: No acute distress Head: Atraumatic Eyes: Normal Conjunctiva ENT: Normal External Ears, Nose and Mouth. Neck: Full range of motion. No meningismus. Resp: Clear to auscultation bilaterally Cardio: Regular rate and rhythm, no murmurs Abd: Soft, non tender, non distended. Normal bowel sounds Skin: No petechiae or rashes Back: No midline or flank tenderness Fifth right digit: Edema and erythema noted to the distal aspect of fifth right finger. There is no underlying bony deformity noted. There is no lacerations noted. Distal sensation is intact. There is full range of motion. Neur: Awake and alert Psych: Normal Mood and Affect Results 24 hrs Laboratory Tests Test 08/29/18 23:20 POC Beta HCG, Qualitative NEGATIVE Current Medications Medications Dose Sig/Janis Start Time Status Last (Trade) Ordered Route PRN Stop Time Admin Dose Reason Admin Ibuprofen 600 mg ONCE ONCE 08/29/18 DC 08/29/18 (Motrin) PO 22:30 23:47 08/29/18 22:31 Oxycodone/ 1 tab ONCE ONCE 08/29/18 DC 08/29/18 Acetaminophen PO 22:30 23:47 (Percocet 08/29/18 22:31 (5/ 325)) Bacitracin 1 applic ONCE ONCE 08/29/18 DC 08/29/18 (Bacitracin TOP 22:30 23:48 Oint (Ud)) 08/29/18 22:31 Bacitracin 1 applic ONCE ONCE 08/30/18 DC (Bacitracin TOP 00:00 Oint (Ud)) 08/30/18 00:01 Procedures/MDM DIAGNOSTIC IMAGING REPORT Patient: MIGUELINA ARRIAGA : 1990 Age: 27 Sex: F MR #: [id number] DOS: 08/29/182225 Ordering MD: ALIS CORTES Location: [facility] Room/Bed: PROCEDURE: XR Finger. CLINICAL INDICATION: 27 years of age, female. Pain. Trauma. TECHNIQUE: Three views of the right fifth finger. COMPARISON: None available. FINDINGS: Negative for evidence of acute fracture or dislocation of the right fifth finger. Normal alignment. Negative for significant soft tissue swelling. Negative for evidence of radiopaque foreign body. Additional comment: None. IMPRESSION: Negative for evidence of acute fracture dislocation of the right fifth finger. RPTAT: HCTS Tim Kumar Physician Date Time Electronically viewed and signed by Physician Kandace on 08/29/2018 23:17 CS/ CC: ALIS CORTES [id number] MDM: X-rays were performed and results were negative for fracture. Bacitracin was placed on fingernail as there was slight displacement of the nail without any lacerations noted. Finger was dressed and clean dressing. I have low suspicion for neurovascular compromise, compartment syndrome, fracture, osteomyelitis, septic joint, or other emergent condition. Patient discharged with strict ER precautions. Patient advised to follow up with PMD. All questions answered at discharge. Departure Diagnosis: Primary Impression: Finger injury Additional Impression: Pain of finger Condition: Stable ALIS CORTES August 29, 2018 22:33
[2018-08-29] MEDS ORDERED: BACITUD TOP (23:44)
[2018-08-29] MEDS ORDERED: IBUP-1542 PO (23:50)
[2018-08-30] MEDS ORDERED: BACITRACIN 0.9 GM OINT TOP ONE
== END 2018-08-30 01:01 | disposition home or self-care (01) ==
LOC: FTE 21:29
DX: S69.91XA Unspecified injury of right wrist, hand and finger(s), initial encounter (principal); W23.0XXA Caught, crushed, jammed, or pinched between moving objects, initial encounter; Y92.9 Unspecified place or not applicable
CPT/HCPCS: 73140; 81025; 99283; Z7610